=== PATIENT | female | born 1995 | race American Indian/Alaskan Native ===

== ENCOUNTER 2017-09-07 21:34 | Emergency (ER) | payer MEDICAID, OTHER ==
[2017-09-07 22:00] VITALS: RESP 18
--- NOTE | 2017-09-07 23:46 | C.PDOC ---
History Of Present Illness 22 year old female presents to the ER with a complaint of body aches, nasal congestions, and sore throat for the past 5 days. Patient states she has been taking OTC medications with no relief. Denies cough or recent travel. Time Seen by Provider: 09/07/17 22:06 Chief Complaint (Nursing): Medical Clearance History Per: Patient History/Exam Limitations: no limitations Onset/Duration Of Symptoms: Days Current Symptoms Are (Timing): Still Present Recent travel outside of the [place]: No Past Medical History Reviewed: Historical Data, Nursing Documentation, Vital Signs Vital Signs: Last Vital Signs Temp 100.7 F H 09/08/17 00:01 Pulse 93 H 09/08/17 00:01 Resp 18 09/08/17 00:01 BP 119/81 09/08/17 00:01 Pulse Ox 99 09/08/17 02:26 - Medical History PMH: No Chronic Diseases Surgical History: No Surg Hx Family History: States: Unknown Family Hx - Social History Hx Tobacco Use: Yes Hx Alcohol Use: Yes Hx Substance Use: No - Immunization History Hx Tetanus Toxoid Vaccination: Yes Hx Influenza Vaccination: Yes Hx Pneumococcal Vaccination: Yes Review Of Systems ENT: Positive for: Nose Congestion, Throat Pain Respiratory: Negative for: Cough Musculoskeletal: Positive for: Other (body aches) Physical Exam - Physical Exam Appears: Non-toxic, No Acute Distress Skin: Normal Color, Warm, Dry Head: Atraumatic, Normacephalic Eye(s): bilateral: Normal Inspection Ear(s): Bilateral: Normal Nose: Normal, Other (Congestion) Oral Mucosa: Moist Throat: Normal, No Erythema, No Exudate Neck: Normal, Supple Chest: Symmetrical, No Tenderness Cardiovascular: Rhythm Regular Respiratory: Normal Breath Sounds, No Rales, No Rhonchi, No Wheezing Neurological/Psych: Oriented x3, Normal Speech ED Course And Treatment O2 Sat by Pulse Oximetry: 99 (Room air) Pulse Ox Interpretation: Normal Progress Note: Flu swab ordered, results were negative. Motrin administered to treat low grade fever. Explained to patient that symptoms appear to be viral, will discharge with Rx and instructions to follow up with PMD for further evaluation. Disposition - Disposition Referrals: Martinez Johnson MD [Family Provider] - Disposition: HOME/ ROUTINE Disposition Time: 23:44 Condition: STABLE Additional Instructions: Follow up with your PMD within 1-2 days. Return to ED if feel worse. Prescriptions: Fluticasone Nasal [Flonase] 1 spr NS BID #1 spr Ibuprofen [Motrin Tab] 600 mg PO Q8 #30 tab Ondansetron ODT [Zofran ODT] 4 mg PO .Q4-6H PRN #20 odt PRN Reason: Nausea/Vomiting Instructions: Upper Respiratory Infection (ED) Forms: [employer] (Chinese) - Clinical Impression Clinical Impression: URI (upper respiratory infection) - PA / [employer] / Resident Statement MD/DO has reviewed & agrees with the documentation as recorded. - Scribe Statement The provider has reviewed the documentation as recorded by the Scribe Usama Watkins All medical record entries made by the Scribmarisabel were at my direction and personally dictated by me. I have reviewed the chart and agree that the record accurately reflects my personal performance of the history, physical exam, medical decision making, and the department course for this patient. I have also personally directed, reviewed, and agree with the discharge instructions and disposition.
[2017-09-08 00:02] VITALS: BP 119/81; PULSE 93; TEMP 100.7
[2017-09-08 02:23] VITALS: O2SAT 99
== END 2017-09-08 00:02 | disposition home or self-care (01) ==
LOC: C.ER 21:34
DX: J06.9 Acute upper respiratory infection, unspecified (principal); F17.210 Nicotine dependence, cigarettes, uncomplicated